=== PATIENT | female | born 1980 | race Two or more races ===

== ENCOUNTER 2019-05-09 19:13 | Emergency (ER) | payer MEDICAID ==
[~2019-05-09] VITALS: Ht 160 cm; Wt 109.3 kg
[2019-05-09 19:38] VITALS: Ht 160 cm; Wt 109.3 kg
[2019-05-09 22:55] VITALS: BP 136/78
== END 2019-05-09 22:55 | disposition home or self-care (01) ==
LOC: ED 19:13
DX: L05.91 Pilonidal cyst without abscess (principal)
CPT/HCPCS: J1885; J2001